=== PATIENT | male | born 1955 | race Caucasian/White ===

== ENCOUNTER 2017-09-05 22:59 | Emergency (ER) | payer OTHER ==
[~2017-09-05] VITALS: Ht 182.9 cm; Wt 91.4 kg
[~2017-09-05 22:59] MED LIST: CIPR500T4 PO; TAMS-14 PO
[2017-09-05 23:04] VITALS: Ht 182.9 cm; Wt 91.4 kg
--- NOTE | 2017-09-06 00:06 | ERD ---
ER Documentation Chief Complaint Chief Complaint sp trip and fall, scalp laceration no ko HPI The patient is a 62-year-old male, presenting with occipital laceration after mechanical fall. He denies syncope, near syncope, neck pain, chest pain, dyspnea, abdominal pain, vomiting. He has been drinking Past medical/surgical history: None ROS All systems reviewed and are negative except as per history of present illness. Medications Home Meds Active Scripts Ciprofloxacin Hcl* (Ciprofloxacin Hcl*) 500 Mg Tablet, 500 MG PO BID, #14 TAB Prov:AUDREYROM 05/21/15 Tamsulosin Hcl* (Flomax*) 0.4 Mg Cap.er.24h, 0.4 MG PO DAILY, #30 CAP 3 Refills Prov:AUDREYROM 05/21/15 Allergies Allergies: Coded Allergies: No Known Allergies (Verified Allergy, Unknown, 05/19/15) PMhx/Soc History of Surgery: Yes (ventral hernia repair) Anesthesia Reaction: No Hx Neurological Disorder: No Hx Respiratory Disorders: No Hx Cardiac Disorders: No Hx Psychiatric Problems: No Hx Miscellaneous Medical Probl: No Hx Alcohol Use: Yes Hx Substance Use: No Hx Tobacco Use: Yes Physical Exam Vitals Vital Signs Date Time Temp Pulse Resp B/P Pulse Ox O2 Delivery O2 Flow Rate FiO2 09/06/17 02:30 80 18 127/82 97 Room Air 09/06/17 01:46 97.8 82 20 126/83 100 Room Air 09/06/17 00:00 97.8 76 20 120/79 100 Room Air 09/05/17 23:04 97.8 95 20 120/79 100 Physical Exam Const: No acute distress. Head: Traumatic., There is occipital laceration that is not actively bleeding Eyes: Normal Conjunctiva. ENT: Normal External Ears, Nose and Mouth. Neck: Full range of motion. No meningismus. Resp: Clear to auscultation bilaterally. Cardio: Regular rate and rhythm. Abd: Soft, non distended, normal bowel sounds, non tender. Skin: No petechiae or rashes. Back: No midline or flank tenderness. Ext: No cyanosis, or edema. Neur: Awake and alert. No focal deficit Psych: Normal Mood and Affect. Results 24 hrs Current Medications Medications (Trade) Dose Ordered Sig/[place] Route PRN Reason Start Time Stop Time Status Last Admin Dose Admin Diphtheria/ Tetanus/Acell Pertussis (Adacel) 0.5 ml ONCE ONCE IM* 09/06/17 00:30 09/06/17 00:31 DC 09/06/17 01:10 Lidocaine/ Epinephrine (Xylocaine 2%/ Epi Mpf(Sdv)) 20 ml ONCE STAT INJ 09/06/17 01:52 09/06/17 01:54 DC Procedures/[place] [address] Radiology Main Line: [phone] DIAGNOSTIC IMAGING REPORT Patient: DAPHNE MICHAELS : 1955 Age: 62 Sex: M MR #: [id number] DOS: 09/06/17 0016 Ordering MD: DENIS LYNN MD Location: E/R Room/Bed: PROCEDURE: CT cervical spine without contrast CLINICAL INDICATION: Trauma. Pain. TECHNIQUE: CT scan of the cervical spine was performed on a multidetector scanner. No IV contrast was administered. Coronal and sagittal reformatted images were obtained from the axial source images. Images were reviewed on a high-resolution PACS workstation. Exam CTDlvol = 22 mGy and DLP = 428 mGy-cm. One of the following 3 dose reduction techniques were used: Automated exposure control; adjustment of the mA and/or kV according to patient size; or use of iterative reconstruction technique. DICOM images are available. COMPARISON: None available FINDINGS: There is no fracture. There is 3.4 mm anterior subluxation of C7 on T1 with associated bilateral facet hypertrophy and interlocked osteophytes. Alignment is otherwise maintained. There is maintenance of height of the vertebral bodies. Mild multilevel degenerative changes are present, greatest at C6-7. Bone mineralization is within normal limits. Prevertebral soft tissues are unremarkable. There are atherosclerotic calcifications of the carotid arteries. IMPRESSION: 1. No acute post traumatic abnormality. 2. 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 RPTAT: MVK .Denis Suero MD, Date Time Electronically viewed and signed by .Denis Suero MD, on 09/06/2017 01:32 .K/ CC: DENIS LYNN MD [place] [address] Radiology Main Line: [phone] DIAGNOSTIC IMAGING REPORT Patient: DAPHNE MICHAELS : 1955 Age: 62 Sex: M [id number] [id number] DOS: 09/06/17 0016 Ordering MD: DENIS LYNN MD Location: E/R Room/Bed: PROCEDURE: CT Brain without contrast. CLINICAL INDICATION: Trauma. Pain. TECHNIQUE: Serial axial computed tomographic images of the brain was performed on a CT scanner from the skull base through the vertex without contrast. One of the following 3 dose reduction techniques were used: Automated exposure control; adjustment of the mA and/or kV according to patient size; or use of iterative reconstruction technique. CTDlvol = 42 mGy and DLP = 630 mGy-cm. DICOM images are available. COMPARISON: None available. FINDINGS: There is right posterior parietal subcutaneous soft tissue swelling and gas without an underlying fracture. The ventricles and sulci are normal in size and configuration. There is no midline shift. There are no focal parenchymal abnormalities. There is no acute stroke. No acute intracranial hemorrhage or abnormal extra-axial fluid collection. Visualized paranasal sinuses are clear. IMPRESSION: 1. No acute intracranial post-traumatic abnormality. 2. Right posterior parietal subcutaneous soft tissue swelling and gas without an underlying fracture. RPTAT: HMVK .Denis Suero MD, MD Date Time Electronically viewed and signed by .Denis Suero MD, MD on 09/06/2017 01:24 .K/ CC: DENIS LYNN MD MEDICAL MAKING DECISION: The patient is a 62-year-old male, presenting with acute scalp laceration. he was treated with Tdap IM. The lac was repaired by the PA The differential diagnoses considered include but are not limited to subarachnoid hemorrhage, occult trauma, CVA, meningitis, encephalitis, hypertension, tension, migraine, cluster, narcotic withdrawal, cervical spine disease. Departure Diagnosis: Primary Impression: Scalp laceration Condition: Good Comments He was advised to return in 2 days for wound check, 10 days for sharon removal DENIS LYNN MD Sep 06, 2017 00:06
[2017-09-06] MEDS ORDERED: DIPHTH/TET/ACEL PERTUSS (ADULT) 0.5 ML VIAL IM* ONE (00:30)
--- NOTE | 2017-09-06 01:25 | RADRPT ---
PROCEDURE: CT Brain without contrast. CLINICAL INDICATION: Trauma. Pain. TECHNIQUE: Serial axial computed tomographic images of the brain was performed on a CT scanner fro m the skull base through the vertex without contrast. One of the following 3 dose reduction techniq ues were used: Automated exposure control; adjustment of the mA and/or kV according to patient size; or use of iterative reconstruction technique. CTDlvol = 42 mGy and DLP = 630 mGy-cm. DICOM images are available. COMPARISON: None available. FINDINGS: There is right posterior parietal subcutaneous soft tissue swelling and gas without an underlying fr acture. The ventricles and sulci are normal in size and configuration. There is no midline shift. There are no focal parenchymal abnormalities. There is no acute stroke. No acute intracranial hem orrhage or abnormal extra-axial fluid collection. Visualized paranasal sinuses are clear. IMPRESSION: 1. No acute intracranial post-traumatic abnormality. 2. Right posterior parietal subcutaneous soft tissue swelling and gas without an underlying fractur e. RPTAT: HMVK .Denis Suero MD, Date Time Electronically viewed and signed by .Denis Suero MD, on 09/06/2017 01:24 .K/
--- NOTE | 2017-09-06 01:32 | RADRPT ---
PROCEDURE: CT cervical spine without contrast CLINICAL INDICATION: Trauma. Pain. TECHNIQUE: CT scan of the cervical spine was performed on a multidetector scanner. No IV contrast was administered. Coronal and sagittal reformatted images were obtained from the axial source imag es. Images were reviewed on a high-resolution PACS workstation. Exam CTDlvol = 22 mGy and DLP = 428 mGy-cm. One of the following 3 dose reduction techniques were used: Automated exposure control; adjustment of the mA and/or kV according to patient size; or use of iterative reconstruction technDaixe ue. DICOM images are available. COMPARISON: None available FINDINGS: There is no fracture. There is 3.4 mm anterior subluxation of C7 on T1 with associated bilateral fa cet hypertrophy and interlocked osteophytes. Alignment is otherwise maintained. There is maintenan ce of height of the vertebral bodies. Mild multilevel degenerative changes are present, greatest at C6-7. Bone mineralization is within normal limits. Prevertebral soft tissues are unremarkable. There are atherosclerotic calcifications of the carotid arteries. IMPRESSION: 1. No acute post traumatic abnormality. 2. 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 RPTAT: MVK .Denis Suero MD, Date Time Electronically viewed and signed by .Denis Suero MD, on 09/06/2017 01:32 .K/
[2017-09-06 01:46] VITALS: TEMP 97.8
[2017-09-06] MEDS ORDERED: LIDOCAINE 2%/EPI MPF (SDV) 20 ML VIAL INJ STA (01:52)
[2017-09-06 02:30] VITALS: BP 127/82; PULSE 80; RESP 18
== END 2017-09-06 02:30 | disposition home or self-care (01) ==
LOC: FTE 22:59 → E/R 09-06 02:30
DX: S01.01XA Laceration without foreign body of scalp, initial encounter (principal); W01.0XXA Fall on same level from slipping, tripping and stumbling without subsequent striking against object, initial encounter; Y92.9 Unspecified place or not applicable; Z23 Encounter for immunization; Z87.891 Personal history of nicotine dependence
CPT/HCPCS: 70450; 72125; 90471; 90715; Z7502

== ENCOUNTER 2017-09-18 10:12 | Emergency (ER) | payer OTHER ==
[~2017-09-18] VITALS: Ht 180.3 cm; Wt 91.5 kg
[2017-09-18 10:14] VITALS: Ht 180.3 cm; Wt 91.5 kg
--- NOTE | 2017-09-18 10:37 | ERD ---
ER Documentation Chief Complaint Chief Complaint REMOVE SHARON HPI 62 year old male comes in for staple removal from the scalp that was from approximately 13 days ago. Patient states that he was at a green party and he fell backwards and hit the scalp, there was no loss of consciousness or vomiting. The patient has been doing well, denies headaches, dizziness. ROS All systems reviewed and are negative except as per history of present illness. Medications Home Meds Active Scripts Ciprofloxacin Hcl* (Ciprofloxacin Hcl*) 500 Mg Tablet, 500 MG PO BID, #14 TAB Prov:AUDREYROM 05/21/15 Tamsulosin Hcl* (Flomax*) 0.4 Mg Cap.er.24h, 0.4 MG PO DAILY, #30 CAP 3 Refills Prov:IRENE VENTURAAL 05/21/15 Allergies Allergies: Coded Allergies: No Known Allergies (Verified Allergy, Unknown, 05/19/15) PMhx/Soc History of Surgery: Yes (ventral hernia repair) Anesthesia Reaction: No Hx Neurological Disorder: No Hx Respiratory Disorders: No Hx Cardiac Disorders: No Hx Psychiatric Problems: No Hx Miscellaneous Medical Probl: No Hx Alcohol Use: Yes Hx Substance Use: No Hx Tobacco Use: Yes Smoking Status: Never smoker Physical Exam Vitals Vital Signs Date Time Temp Pulse Resp B/P Pulse Ox O2 Delivery O2 Flow Rate FiO2 09/18/17 10:14 98.0 86 18 132/82 99 Physical Exam General: Well-developed, well-nourished. The patient appears in no acute distress. HEENT: Head is normocephalic, healed laceration to the back of the scalp with 9 sharon intact, no dehiscence, erythema, drainage or warmth.. No scleral icterus. Neck: Supple. Nontender. Lungs: Clear to auscultation. Normal air movement. Heart: Regular rate and rhythm. S1 and S2 are normal. No murmurs, gallops, or rubs. Abdomen: Nondistended. Extremities: No clubbing or cyanosis. Moving extremities x 4. No weakness. Neurologic: Alert and oriented 3. No focal deficits. Normal speech and gait. Skin: Normal turgor. No rash or lesions. Procedures/MDM Staple Removal by me: Hazel Hurst removed with staple remover without incident. Wound shows no evidence of infection, foreign body, neurologic injury, vascular injury, open joint or tendon laceration. Patient to follow up PRN. Patient's blood pressure was elevated (>120/80) but appears stable without evidence of hypertension emergency or urgency. The patient was counseled about the risks of hypertension and urged to pursue outpatient monitoring and therapy within a week with their primary care physician. Departure Diagnosis: Primary Impression: Encounter for removal of sharon Condition: Good Patient Instructions: Staple Removal, No Complication MEHDI MA PA-C Sep 18, 2017 10:37
[2017-09-27] MEDS ORDERED: ACET1TAB40 PO (11:41)
[2017-09-27] MEDS ORDERED: ACYC800T57 PO (11:41)
== END 2017-09-18 11:04 | disposition home or self-care (01) ==
LOC: FTE 10:12
DX: Z48.02 Encounter for removal of sutures (principal)
CPT/HCPCS: 99281

== ENCOUNTER 2017-09-27 10:14 | Emergency (ER) | END 2017-09-27 12:48 | disposition home or self-care (01) ==

== ENCOUNTER 2018-02-26 21:27 | Emergency (ER) | END 2018-02-26 22:45 | disposition home or self-care (01) ==